=== PATIENT | female | born 1960 | race African-American/Black ===

== ENCOUNTER 2022-04-10 10:08 | Outpatient (CLI) | payer MEDICARE | END 2022-04-10 10:09 | disposition home or self-care (01) | LOC: CSHMAMMO 10:08 | PROVIDERS: ATTEND Internal Medicine | DX: Z12.31 Encounter for screening mammogram for malignant neoplasm of breast (principal); N63.20 Unspecified lump in the left breast, unspecified quadrant | CPT/HCPCS: 77063; 77067 ==